=== PATIENT | female | born 1960 | race African-American/Black ===

== ENCOUNTER 2022-01-26 12:57 | Outpatient (CLI) | payer OTHER ==
--- NOTE | 2022-01-26 17:30 | CT Report ---
PROCEDURE: Low Dose Lung Cancer Screen INDICATIONS: SMOKER TECHNIQUE: Noncontrast low-dose axial images were acquired from the pulmonary apices to the posterior costophren ic angles. Multiplanar MIP reformats were then reconstructed. For radiation dose reduction, the follo wing was used: automated exposure control, adjustment of mA and/or kV according to patient size. COMPARISON: None. FINDINGS: Image quality: Excellent. Lungs and pleura: 4 mm pulmonary nodule is present within the right upper lobe (series 4/image 75). Platelike atelectasis is present at the left lung base. No other pulmonary nodules. No acute airspace opacities. No pleural effusion or pneumothorax. Mediastinum: Heart size is normal. No pericardial effusion. No mediastinal adenopathy by size crit eria. Thoracic aorta and central pulmonary arteries are normal in size. Esophagus is normal in abdias radha. No hiatal hernia. Bones and chest wall: No suspicious bony lesions. No vertebral body compression fractures. No axil lainey or supraclavicular adenopathy by size criteria. The thyroid is normal in size and there are no incidental findings. Abdomen: Visualized upper abdomen solid organs and bowel loops appear normal in the absence of contr ast. IMPRESSION: 4 mm pulmonary nodule at the right upper lobe. No other suspicious pulmonary nodules or mass lesions. Lung RADS 1. Annual CT surveillance recommended. Reviewed by: Cate Reece MD on 01/26/2022 5:28 PM PDT Approved by: Cate Reece MD on 01/26/2022 5:28 PM PDT Station ID: [id number]
== END 2022-01-26 12:58 | disposition home or self-care (01) ==
LOC: DI 12:57
PROVIDERS: ATTEND Nurse Practitioner
DX: Z12.2 Encounter for screening for malignant neoplasm of respiratory organs (principal); R91.1 Solitary pulmonary nodule; F17.210 Nicotine dependence, cigarettes, uncomplicated